=== PATIENT | female | born 1940 | race Caucasian/White ===

== ENCOUNTER 2017-01-07 23:15 | Emergency (ER) | payer MEDICARE, OTHER | END 2017-01-08 00:12 | disposition home or self-care (01) | LOC: FER 23:15 | DX: J40 Bronchitis, not specified as acute or chronic (principal); K21.9 Gastro-esophageal reflux disease without esophagitis; F17.200 Nicotine dependence, unspecified, uncomplicated; Z79.899 Other long term (current) drug therapy | CPT/HCPCS: 71020; 99283 ==